=== PATIENT | male | born 1965 | race African-American/Black ===

== ENCOUNTER 2018-11-22 13:07 | Emergency (ER) | payer MEDICAID ==
[~2018-11-22] VITALS: Ht 182.9 cm; Wt 73.0 kg
[2018-11-22] MEDS ORDERED: SODIUM CHLORIDE 0.9% 1,000 ML IV ONE (14:01)
[2018-11-22 14:46] LABS: BASOPHILS % 1.5 % (0.0-2.0); EOSINOPHILS % 1.8 % (0.0-5.0); HEMATOCRIT. 45.7 % (42.0-52.0); HEMOGLOBIN. 14.9 g/dL (14.0-18.0); LYMPHOCYTES % 39.9 % (20.0-50.0); MEAN CORPUSCULAR HEMOGLOBIN 30.7 pg (28.0-32.0); MONOCYTES % 12.9 % (2.0-8.0); NEUTROPHILS % 43.9 % (40.0-76.0); PLATELET 123 x1000/uL (130-400); RED BLOOD CELL COUNT 4.87 mill/uL (4.7-6.1); RED CELL DISTRIBUTION WIDTH 13.9 % (11.6-14.6)
[2018-11-22 14:51] LABS: CHLORIDE 110 mEq/L (98-107)
[2018-11-22 14:57] LABS: ETHANOL BLOOD 297 mg/dL
[2018-11-22 18:40] VITALS: BP 123/84
== END 2018-11-22 18:47 | disposition home or self-care (01) ==
LOC: ER 13:20
DX: F10.129 Alcohol abuse with intoxication, unspecified (principal); Y90.8 Blood alcohol level of 240 mg/100 ml or more; R03.0 Elevated blood-pressure reading, without diagnosis of hypertension; F12.90 Cannabis use, unspecified, uncomplicated
CPT/HCPCS: 36415; 80053; 84484; 85025; 87186; 93005; 96360; 96361; 99284; J7030

== ENCOUNTER 2019-06-28 03:05 | Emergency (ER) | payer MEDICAID ==
[~2019-06-28] VITALS: Ht 180.3 cm; Wt 82.0 kg
[2019-06-28 06:18] VITALS: BP 137/98
== END 2019-06-28 06:20 | disposition home or self-care (01) ==
LOC: ER 03:05
DX: S80.862A Insect bite (nonvenomous), left lower leg, initial encounter (principal); S80.861A Insect bite (nonvenomous), right lower leg, initial encounter; S40.862A Insect bite (nonvenomous) of left upper arm, initial encounter; S40.861A Insect bite (nonvenomous) of right upper arm, initial encounter; R03.0 Elevated blood-pressure reading, without diagnosis of hypertension; F17.200 Nicotine dependence, unspecified, uncomplicated; F12.10 Cannabis abuse, uncomplicated; W57.XXXA Bitten or stung by nonvenomous insect and other nonvenomous arthropods, initial encounter; Y93.89 Activity, other specified; Y92.098 Other place in other non-institutional residence as the place of occurrence of the external cause; Y99.8 Other external cause status
CPT/HCPCS: 99282

== ENCOUNTER 2019-09-07 11:25 | Emergency (ER) | payer MEDICAID ==
[~2019-09-07] VITALS: Ht 180.3 cm; Wt 73.0 kg
[2019-09-07 13:17] VITALS: BP 142/76
== END 2019-09-07 13:17 | disposition home or self-care (01) ==
LOC: ER 11:25
DX: S00.83XA Contusion of other part of head, initial encounter (principal); Y08.89XA Assault by other specified means, initial encounter; Y93.89 Activity, other specified; Y92.89 Other specified places as the place of occurrence of the external cause; Y99.8 Other external cause status
CPT/HCPCS: 99282